=== PATIENT | male | born 1955 | race Caucasian/White ===

== ENCOUNTER 2019-12-27 10:55 | Outpatient (REF) | payer BC, SELFPAY ==
[2019-12-27 12:42] LABS: Hematocrit 44.8 % (42-52); Hemoglobin 15.1 g/dl (14.0-18.0); Mean Corpuscular HGB Conc 33.7 g/dl (31.0-36.0); Mean Corpuscular Volume 88.9 fL (80-98); Mean Platelet Volume 11.3 fL (9.4-12.4); Platelet Count 190 X10*3/uL (160-400); Red Blood Count 5.04 X10*6/uL (4.60-5.80); Red Cell Distribution Width 12.1 % (11.0-16.0); White Blood Count 8.1 X10*3/uL (4.8-10.8)
[2019-12-27 13:16] LABS: Thyroid Stimulating Hormone 2.58 uIU/mL (0.32-4.0)
[2019-12-27 13:17] LABS: Alanine Aminotransferase 25 U/L (0-40); Albumin Level 4.3 g/dL (3.5-5.0); Alkaline Phosphatase 89 U/L (39-117); Anion Gap 12 (12-20); Aspartate Amino Transferase 25 U/L (5-37); Bilirubin Direct 0.4 mg/dL (0.0-0.5); Bilirubin Total 0.9 mg/dL (0.0-1.0); Blood Urea Nitrogen 16 mg/dL (9-16); Carbon Dioxide 28 mmol/L (22-29); Chloride 104 mmol/L (96-108); Cholesterol 149 mg/dL; Estimated Glomerular Filt Rate > 60; Glucose Fasting 86 mg/dL (60-99); HDL Cholesterol 44 mg/dL; LDL Cholesterol Calculated 91 mg/dl; Magnesium 2.3 mg/dL (1.6-2.6); Potassium 4.4 mmol/l (3.3-5.1); Sodium 140 mmol/L (135-145); Total Protein 7.1 g/dL (6.5-8.0); Triglycerides 72 mg/dL
== END 2019-12-27 10:56 | disposition home or self-care (01) ==
LOC: HO.LAB 10:55
PROVIDERS: Absent Provider Internal Medicine; PCP Internal Medicine; Visit Provider Internal Medicine Cardiovascular Disease
DX: I25.10 Atherosclerotic heart disease of native coronary artery without angina pectoris (principal); I10 Essential (primary) hypertension; E78.2 Mixed hyperlipidemia
CPT/HCPCS: 36415; 80051; 80061; 80076; 82565; 82947; 83735; 84443; 84520; 85027

== ENCOUNTER 2020-04-16 15:07 | Outpatient (REF) | payer BC, SELFPAY | END 2020-04-16 15:08 | disposition home or self-care (01) | LOC: HO.LAB 15:07 | PROVIDERS: PCP Internal Medicine; Visit Provider Internal Medicine | DX: N40.0 Benign prostatic hyperplasia without lower urinary tract symptoms (principal); Z12.5 Encounter for screening for malignant neoplasm of prostate | CPT/HCPCS: 36415; 84153 ==

== ENCOUNTER 2020-12-20 10:20 | Outpatient (REF) | payer BC, SELFPAY ==
[2020-12-20 10:38] LABS: MANUAL DIFF FLAG NO
[2020-12-20 10:45] LABS: Basophils Percent Auto 0.5 % (0-2); Eosinophils Absolute Auto 0.1 X10*3/uL (0.0-0.4); Eosinophils Percent Auto 0.8 % (0-4); Hematocrit 43.7 % (42.0-52.0); Hemoglobin 15.2 g/dl (14.0-18.0); Imm Gran Abs Auto 0.01 X10*3/uL (0.00-0.03); Imm Gran Pct Auto 0.2 % (0.0-0.4); Lymphocytes Absolute Auto 1.3 X10*3/uL (1.2-4.9); Lymphocytes Percent Auto 20.5 % (20-40); Mean Corpuscular HGB Conc 34.8 g/dl (31.0-36.0); Mean Corpuscular Volume 89.2 fL (80.0-98.0); Mean Platelet Volume 11.4 fL (9.4-12.4); Monocytes Absolute Auto 0.7 X10*3/uL (0.1-1.2); Monocytes Percent Auto 10.7 % (2-11); Neutrophils Absolute Auto 4.15 x10*3/uL (2.0-8.3); Neutrophils Percent Auto 67.3 % (45-73); Platelet Count 173 X10*3/uL (160-400); White Blood Count 6.2 X10*3/uL (4.8-10.8)
[2020-12-20 11:00] LABS: Estimated Average Glucose 103 mg/dL; Hemoglobin A1c % 5.2 %
[2020-12-20 11:21] LABS: Alanine Aminotransferase 20 U/L (0-40); Albumin Level 4.4 g/dL (3.5-5.0); Alkaline Phosphatase 79 U/L (39-117); Anion Gap 9 (12-20); Aspartate Amino Transferase 21 U/L (5-37); Blood Urea Nitrogen 16 mg/dL (9-16); Calcium 9.2 mg/dL (8.4-10.2); Carbon Dioxide 31 mmol/L (22-29); Chloride 107 mmol/L (96-108); Cholesterol 128 mg/dL; Estimated Glomerular Filt Rate > 60; Glucose Fasting 114 mg/dL (60-99); HDL Cholesterol 37 mg/dL; LDL Cholesterol Calculated 76 mg/dl; Potassium 4.7 mmol/L (3.3-5.1); Sodium 142 mmol/L (135-145); Total Protein 6.8 g/dL (6.5-8.0); Triglycerides 76 mg/dL
[2020-12-20 11:40] LABS: Vitamin D 25-OH Total 23.9 ng/mL (>30)
[2020-12-20 13:42] LABS: Appearance Urine CLEAR; Color Urine YELLOW; Glucose Urine UA NEG (NEG); Leukocyte Esterase Urine NEG (NEG); Nitrite Urine NEG (NEG); Urine Blood 1+ (NEG); Urine Ketones NEG (NEG); Urine Protein TRACE MG/DL (NEG-TRACE)
[2020-12-20 13:43] LABS: Amorphous Sediment Urine 2+ /LPF; Mucus Urine 2+ /LPF; WBC Urine 0 /HPF (0-4)
== END 2020-12-20 10:21 | disposition home or self-care (01) ==
LOC: HO.LAB 10:20
PROVIDERS: PCP Internal Medicine; Visit Provider Internal Medicine
DX: Z00.00 Encounter for general adult medical examination without abnormal findings (principal)
CPT/HCPCS: 36415; 80053; 80061; 81001; 81003; 82306; 83036; 85025

== ENCOUNTER 2021-09-03 11:18 | Outpatient (REF) | payer MEDICARE, SELFPAY ==
[2021-09-03 13:41] LABS: MANUAL DIFF FLAG NO
[2021-09-03 13:45] LABS: Basophils Percent Auto 0.3 % (0-2); Eosinophils Absolute Auto 0.1 X10*3/uL (0.0-0.4); Eosinophils Percent Auto 0.6 % (0-4); Hematocrit 45.9 % (42.0-52.0); Hemoglobin 15.5 g/dl (14.0-18.0); Imm Gran Abs Auto 0.03 X10*3/uL (0.00-0.03); Imm Gran Pct Auto 0.4 % (0.0-0.4); Lymphocytes Absolute Auto 1.2 X10*3/uL (1.2-4.9); Lymphocytes Percent Auto 15.5 % (20-40); Mean Corpuscular HGB Conc 33.8 g/dl (31.0-36.0); Mean Corpuscular Hemoglobin 29.8 pg (27.0-33.0); Mean Corpuscular Volume 88.3 fL (80.0-98.0); Mean Platelet Volume 11.7 fL (9.4-12.4); Monocytes Absolute Auto 0.6 X10*3/uL (0.1-1.2); Monocytes Percent Auto 7.8 % (2-11); Neutrophils Percent Auto 75.4 % (45-73); Platelet Count 200 X10*3/uL (160-400); Red Cell Distribution Width 12.5 % (11.0-16.0)
[2021-09-03 13:55] LABS: Alanine Aminotransferase 23 U/L (0-40); Albumin Level 4.4 g/dL (3.5-5.0); Alkaline Phosphatase 81 U/L (39-117); Anion Gap 11 (12-20); Aspartate Amino Transferase 19 U/L (5-37); Bilirubin Total 0.8 mg/dL (0.0-1.0); Blood Urea Nitrogen 15 mg/dL (9-16); Carbon Dioxide 30 mmol/L (22-29); Chloride 105 mmol/L (96-108); Estimated Glomerular Filt Rate > 60; Glucose Random 120 mg/dL (60-115); Potassium 4.7 mmol/L (3.3-5.1); Sodium 141 mmol/L (135-145)
[2021-09-03 14:00] LABS: Estimated Average Glucose 105 mg/dL; Hemoglobin A1c % 5.3 %
[2021-09-03 14:18] LABS: Vitamin D 25-OH Total 22.2 ng/mL (>30)
== END 2021-09-03 11:19 | disposition home or self-care (01) ==
LOC: HO.10HDL 11:18
PROVIDERS: Visit Provider Internal Medicine
DX: I42.9 Cardiomyopathy, unspecified (principal); I10 Essential (primary) hypertension; R73.03 Prediabetes; E55.9 Vitamin D deficiency, unspecified
CPT/HCPCS: 36415; 80053; 82306; 83036; 85025

== ENCOUNTER 2021-12-12 10:00 | Outpatient (REF) | payer MEDICARE, SELFPAY ==
[2021-12-12 11:08] LABS: Estimated Average Glucose 100 mg/dL; Hemoglobin A1c % 5.1 %
[2021-12-12 11:48] LABS: Alanine Aminotransferase 22 U/L (0-40); Albumin Level 4.3 g/dL (3.5-5.0); Alkaline Phosphatase 80 U/L (39-117); Anion Gap 11 (12-20); Aspartate Amino Transferase 24 U/L (5-37); Bilirubin Total 0.7 mg/dL (0.0-1.0); Blood Urea Nitrogen 17 mg/dL (9-16); Calcium 9.1 mg/dL (8.4-10.2); Carbon Dioxide 29 mmol/L (22-29); Chloride 104 mmol/L (96-108); Estimated Glomerular Filt Rate > 60; Glucose Random 101 mg/dL (60-115); Potassium 4.3 mmol/L (3.3-5.1); Sodium 140 mmol/L (135-145); Total Protein 6.8 g/dL (6.5-8.0)
[2021-12-12 11:49] LABS: Vitamin D 25-OH Total 26.1 ng/mL (>30)
== END 2021-12-12 10:01 | disposition home or self-care (01) ==
LOC: HO.10HDL 10:00
PROVIDERS: Absent Provider Internal Medicine Cardiovascular Disease; Visit Provider Internal Medicine
DX: Z12.5 Encounter for screening for malignant neoplasm of prostate (principal); R73.03 Prediabetes; I25.10 Atherosclerotic heart disease of native coronary artery without angina pectoris; I10 Essential (primary) hypertension; E55.9 Vitamin D deficiency, unspecified
CPT/HCPCS: 36415; 80053; 82306; 83036; 84153

== ENCOUNTER 2022-04-01 16:01 | Outpatient (REF) | payer MEDICARE, SELFPAY ==
--- NOTE | ~2022-04-01 | XR_ITS ---
EXAMINATION: XR CHEST CLINICAL INFORMATION: Cough and shortness of breath. COMPARISON: 05/04/2018. TECHNIQUE: 2 views of the chest were obtained. FINDINGS: Median sternotomy with CABG. The cardiomediastinal silhouette is stable. The lungs are well expanded. No vascular congestion. No consolidation. No effusion or pneumothorax. Degenerative changes in the spine. XR/XR chest 2V IMPRESSION: No focal pneumonia.
== END 2022-04-01 16:02 | disposition home or self-care (01) ==
LOC: HO.XRAY 16:01
PROVIDERS: PCP Internal Medicine; Visit Provider Internal Medicine
DX: R06.02 Shortness of breath (principal); R05.9 Cough, unspecified
CPT/HCPCS: 71046

== ENCOUNTER 2022-04-17 17:02 | Outpatient (REF) | payer MEDICARE, SELFPAY ==
--- NOTE | ~2022-04-17 | XR_ITS ---
EXAMINATION: XR HAND, RIGHT CLINICAL INFORMATION: Right hand injury. COMPARISON: None TECHNIQUE: PA, lateral, and oblique views of the right hand. FINDINGS: There is loss of PIP and DIP joint space with periarticular spurring. No visible acute fracture, dislocation or subluxation is seen. The soft tissues are normal. XR/XR hand RT min 3V IMPRESSION: Degenerative arthritic changes PIP and DIP joints. No visible acute fracture or dislocation seen.
== END 2022-04-17 17:03 | disposition home or self-care (01) ==
LOC: HO.XRAY 17:02
PROVIDERS: PCP Internal Medicine; Visit Provider Internal Medicine
DX: S69.91XA Unspecified injury of right wrist, hand and finger(s), initial encounter (principal); X58.XXXA Exposure to other specified factors, initial encounter; Y93.9 Activity, unspecified; Y92.9 Unspecified place or not applicable; Y99.9 Unspecified external cause status
CPT/HCPCS: 73130

== ENCOUNTER 2022-04-24 15:43 | Outpatient (REF) | payer MEDICARE, SELFPAY ==
[2022-04-24 15:58] LABS: MANUAL DIFF FLAG NO
[2022-04-24 16:01] LABS: Basophils Percent Auto 0.2 % (0-2); Eosinophils Absolute Auto 0.1 X10*3/uL (0.0-0.4); Eosinophils Percent Auto 1.1 % (0-4); Hematocrit 48.3 % (42.0-52.0); Hemoglobin 16.5 g/dl (14.0-18.0); Imm Gran Abs Auto 0.01 X10*3/uL (0.00-0.03); Imm Gran Pct Auto 0.1 % (0.0-0.4); Lymphocytes Absolute Auto 1.6 X10*3/uL (1.2-4.9); Lymphocytes Percent Auto 18.4 % (20-40); Mean Corpuscular HGB Conc 34.2 g/dl (31.0-36.0); Mean Corpuscular Hemoglobin 29.4 pg (27.0-33.0); Mean Corpuscular Volume 85.9 fL (80.0-98.0); Mean Platelet Volume 10.6 fL (9.4-12.4); Monocytes Absolute Auto 0.7 X10*3/uL (0.1-1.2); Monocytes Percent Auto 8.2 % (2-11); Neutrophils Absolute Auto 6.2 x10*3/uL (2.0-8.3); Platelet Count 207 X10*3/uL (160-400); Red Blood Count 5.62 X10*6/uL (4.60-5.80); White Blood Count 8.6 X10*3/uL (4.8-10.8)
[2022-04-24 16:14] LABS: Estimated Average Glucose 108 mg/dL; Hemoglobin A1c % 5.4 %
[2022-04-24 16:25] LABS: Troponin-I High Sensitivity 3.4 ng/L (<3.5-35.0)
[2022-04-24 16:43] LABS: Alanine Aminotransferase 27 U/L (0-40); Albumin Level 4.3 g/dL (3.5-5.0); Alkaline Phosphatase 82 U/L (39-117); Anion Gap 12 (12-20); Aspartate Amino Transferase 21 U/L (5-37); Bilirubin Total 0.9 mg/dL (0.0-1.0); Blood Urea Nitrogen 16 mg/dL (9-16); Calcium 9.6 mg/dL (8.4-10.2); Carbon Dioxide 27 mmol/L (22-29); Chloride 107 mmol/L (96-108); Estimated Glomerular Filt Rate > 60; Glucose Random 96 mg/dL (60-115); Potassium 4.2 mmol/L (3.3-5.1); Sodium 142 mmol/L (135-145); Total Protein 6.9 g/dL (6.5-8.0)
[2022-04-24 16:48] LABS: Free T4 (Free Thyroxine) 0.98 ng/dL (0.71-1.85)
== END 2022-04-24 15:44 | disposition home or self-care (01) ==
LOC: HO.LAB 15:43
PROVIDERS: PCP Internal Medicine; Visit Provider Internal Medicine
DX: R42 Dizziness and giddiness (principal); I12.9 Hypertensive chronic kidney disease with stage 1 through stage 4 chronic kidney disease, or unspecified chronic kidney disease; D63.1 Anemia in chronic kidney disease; N18.9 Chronic kidney disease, unspecified
CPT/HCPCS: 36415; 80053; 82550; 83036; 84439; 84484; 85025

== ENCOUNTER 2022-06-13 10:20 | Outpatient (REF) | payer MEDICARE, SELFPAY ==
[2022-06-13 11:30] LABS: Cholesterol 120 mg/dL; HDL Cholesterol 40 mg/dL; LDL Cholesterol Calculated 68 mg/dl; Triglycerides 61 mg/dL
== END 2022-06-13 10:21 | disposition home or self-care (01) ==
LOC: HO.LAB 10:20
PROVIDERS: PCP Internal Medicine; Visit Provider Nurse Practitioner Family
DX: I25.10 Atherosclerotic heart disease of native coronary artery without angina pectoris (principal)
CPT/HCPCS: 36415; 80061

== ENCOUNTER 2022-08-14 15:32 | Outpatient (REF) | payer MEDICARE, SELFPAY ==
[2022-08-14 15:54] LABS: MANUAL DIFF FLAG NO
[2022-08-14 16:07] LABS: Basophils Percent Auto 0.4 % (0-2); Eosinophils Absolute Auto 0.1 X10*3/uL (0.0-0.4); Eosinophils Percent Auto 1.5 % (0-4); Hematocrit 46.8 % (42.0-52.0); Hemoglobin 16.1 g/dl (14.0-18.0); Imm Gran Abs Auto 0.02 X10*3/uL (0.00-0.03); Imm Gran Pct Auto 0.3 % (0.0-0.4); Lymphocytes Absolute Auto 1.3 X10*3/uL (1.2-4.9); Lymphocytes Percent Auto 15.9 % (20-40); Mean Corpuscular HGB Conc 34.4 g/dl (31.0-36.0); Mean Corpuscular Volume 87.3 fL (80.0-98.0); Monocytes Absolute Auto 0.6 X10*3/uL (0.1-1.2); Monocytes Percent Auto 7.9 % (2-11); Neutrophils Absolute Auto 5.9 x10*3/uL (2.0-8.3); Platelet Count 178 X10*3/uL (160-400); Red Blood Count 5.36 X10*6/uL (4.60-5.80); Red Cell Distribution Width 12.3 % (11.0-16.0); White Blood Count 7.9 X10*3/uL (4.8-10.8)
[2022-08-14 16:34] LABS: Alanine Aminotransferase 18 U/L (0-40); Albumin Level 4.1 g/dL (3.5-5.0); Alkaline Phosphatase 75 U/L (39-117); Anion Gap 12 (12-20); Aspartate Amino Transferase 18 U/L (5-37); Blood Urea Nitrogen 19 mg/dL (9-16); Calcium 9.7 mg/dL (8.4-10.2); Carbon Dioxide 27 mmol/L (22-29); Chloride 107 mmol/L (96-108); Estimated Glomerular Filt Rate > 60; Glucose Random 98 mg/dL (60-115); Potassium 4.2 mmol/L (3.3-5.1); Sodium 142 mmol/L (135-145); Total Protein 6.8 g/dL (6.5-8.0)
== END 2022-08-14 15:33 | disposition home or self-care (01) ==
LOC: HO.LAB 15:32
PROVIDERS: PCP Internal Medicine; Visit Provider Internal Medicine
DX: I10 Essential (primary) hypertension (principal); E78.00 Pure hypercholesterolemia, unspecified; I25.10 Atherosclerotic heart disease of native coronary artery without angina pectoris
CPT/HCPCS: 36415; 80053; 85025

== ENCOUNTER 2023-02-04 08:13 | Outpatient (REF) | payer MEDICARE, SELFPAY ==
[2023-02-04 08:30] LABS: MANUAL DIFF FLAG NO
[2023-02-04 09:10] LABS: Basophils Percent Auto 0.4 % (0-2); Eosinophils Absolute Auto 0.1 X10*3/uL (0.0-0.4); Eosinophils Percent Auto 1.8 % (0-4); Hematocrit 49.8 % (42.0-52.0); Hemoglobin 16.7 g/dl (14.0-18.0); Imm Gran Abs Auto 0.02 X10*3/uL (0.00-0.03); Imm Gran Pct Auto 0.3 % (0.0-0.4); Lymphocytes Absolute Auto 1.5 X10*3/uL (1.2-4.9); Lymphocytes Percent Auto 18.6 % (20-40); Mean Corpuscular HGB Conc 33.5 g/dl (31.0-36.0); Mean Corpuscular Hemoglobin 30.2 pg (27.0-33.0); Mean Corpuscular Volume 90.1 fL (80.0-98.0); Mean Platelet Volume 10.9 fL (9.4-12.4); Monocytes Absolute Auto 0.6 X10*3/uL (0.1-1.2); Monocytes Percent Auto 7.8 % (2-11); Neutrophils Absolute Auto 5.6 x10*3/uL (2.0-8.3); Neutrophils Percent Auto 71.1 % (45-73); Platelet Count 190 X10*3/uL (160-400); Red Blood Count 5.53 X10*6/uL (4.60-5.80); Red Cell Distribution Width 12.1 % (11.0-16.0); White Blood Count 7.9 X10*3/uL (4.8-10.8)
[2023-02-04 09:47] LABS: Alanine Aminotransferase 25 U/L (0-40); Albumin Level 4.4 g/dL (3.5-5.0); Alkaline Phosphatase 84 U/L (39-117); Anion Gap 12 (12-20); Aspartate Amino Transferase 23 U/L (5-37); Bilirubin Total 1.1 mg/dL (0.0-1.0); Blood Urea Nitrogen 18 mg/dL (9-16); Calcium 9.4 mg/dL (8.4-10.2); Carbon Dioxide 30 mmol/L (22-29); Chloride 108 mmol/L (96-108); Cholesterol 132 mg/dL (<200); Estimated Glomerular Filt Rate > 60; Glucose Fasting 107 mg/dL (60-99); HDL Cholesterol 43 mg/dL (>40); LDL Cholesterol Calculated 73 mg/dL (<100); Potassium 4.1 mmol/L (3.3-5.1); Sodium 146 mmol/L (135-145); Total Protein 7.5 g/dL (6.5-8.0); Triglycerides 83 mg/dL (<150)
[2023-02-04 09:58] LABS: Prostate Specific Antigen Scr 3.17 ng/mL (<0.05-4.0)
[2023-02-04 10:08] LABS: Vitamin D 25-OH Total 30.4 ng/mL (>30)
== END 2023-02-04 08:14 | disposition home or self-care (01) ==
LOC: HO.LAB 08:13
PROVIDERS: Absent Provider Internal Medicine; PCP Internal Medicine; Visit Provider Nurse Practitioner Family
DX: Z12.5 Encounter for screening for malignant neoplasm of prostate (principal); I25.10 Atherosclerotic heart disease of native coronary artery without angina pectoris; I10 Essential (primary) hypertension; I48.0 Paroxysmal atrial fibrillation
CPT/HCPCS: 36415; 80053; 80061; 82306; 84153; 85025

== ENCOUNTER 2023-03-02 10:04 | Outpatient (REF) | payer MEDICARE, SELFPAY ==
[2023-03-02 10:50] LABS: Anion Gap 10 (12-20); Blood Urea Nitrogen 13 mg/dL (9-16); Calcium 9.3 mg/dL (8.4-10.2); Carbon Dioxide 30 mmol/L (22-29); Chloride 105 mmol/L (96-108); Estimated Glomerular Filt Rate > 60; Glucose Random 111 mg/dL (60-115); Potassium 3.8 mmol/L (3.3-5.1); Sodium 141 mmol/L (135-145)
[2023-03-02 10:52] LABS: Estimated Average Glucose 100 mg/dL; Hemoglobin A1c % 5.1 % (<6.0)
== END 2023-03-02 10:05 | disposition home or self-care (01) ==
LOC: HO.10HDL 10:04
PROVIDERS: Visit Provider Internal Medicine
DX: R73.03 Prediabetes (principal); I42.9 Cardiomyopathy, unspecified
CPT/HCPCS: 36415; 80048; 83036

== ENCOUNTER 2023-12-31 10:30 | Outpatient (REF) | payer MEDICARE, SELFPAY ==
[2023-12-31 13:35] LABS: MANUAL DIFF FLAG NO
[2023-12-31 13:40] LABS: Basophils Percent Auto 0.5 % (0-2); Eosinophils Absolute Auto 0.1 X10*3/uL (0.0-0.4); Eosinophils Percent Auto 1.3 % (0-4); Hematocrit 50.3 % (42.0-52.0); Hemoglobin 17.2 g/dl (14.0-18.0); Imm Gran Abs Auto 0.02 X10*3/uL (0.00-0.03); Imm Gran Pct Auto 0.2 % (0.0-0.4); Lymphocytes Absolute Auto 1.4 X10*3/uL (1.2-4.9); Lymphocytes Percent Auto 16.4 % (20-40); Mean Corpuscular HGB Conc 34.2 g/dl (31.0-36.0); Mean Corpuscular Hemoglobin 30.1 pg (27.0-33.0); Mean Corpuscular Volume 88.1 fL (80.0-98.0); Mean Platelet Volume 10.8 fL (9.4-12.4); Monocytes Absolute Auto 0.7 X10*3/uL (0.1-1.2); Monocytes Percent Auto 7.9 % (2-11); Neutrophils Absolute Auto 6.3 x10*3/uL (2.0-8.3); Neutrophils Percent Auto 73.7 % (45-73); Platelet Count 201 X10*3/uL (160-400); Red Blood Count 5.71 X10*6/uL (4.60-5.80); Red Cell Distribution Width 12.2 % (11.0-16.0); White Blood Count 8.5 X10*3/uL (4.8-10.8)
[2023-12-31 14:22] LABS: Estimated Average Glucose 105 mg/dL; Hemoglobin A1C 133.2689 umol/L; Hemoglobin A1c % 5.3 % (<6.0); Total Hemoglobin (HGBA1C) 3903.9201 umol/L
[2023-12-31 15:49] LABS: Alanine Aminotransferase 29 U/L (0-40); Albumin Level 4.5 g/dL (3.5-5.0); Alkaline Phosphatase 88 U/L (39-117); Anion Gap 10 (12-20); Aspartate Amino Transferase 29 U/L (5-37); Bilirubin Total 0.9 mg/dL (0.0-1.0); Blood Urea Nitrogen 16 mg/dL (9-16); Calcium 9.5 mg/dL (8.4-10.2); Carbon Dioxide 32 mmol/L (22-29); Chloride 101 mmol/L (96-108); Estimated Glomerular Filt Rate > 60; Glucose Random 101 mg/dL (60-115); Potassium 4.1 mmol/L (3.3-5.1); Sodium 139 mmol/L (135-145); Total Protein 7.5 g/dL (6.5-8.0)
[2023-12-31 16:10] LABS: Creatinine Urine 94.48 mg/dL; Microalbum/Creatinine Ratio Ur 46.5 ug/mg cr (<30)
[2023-12-31 16:16] LABS: Vitamin D 25-OH Total 30.4 ng/mL (>30)
== END 2023-12-31 10:31 | disposition home or self-care (01) ==
LOC: HO.10HDL 10:30
PROVIDERS: Visit Provider Internal Medicine
DX: I25.10 Atherosclerotic heart disease of native coronary artery without angina pectoris (principal); E11.9 Type 2 diabetes mellitus without complications; I10 Essential (primary) hypertension; E55.9 Vitamin D deficiency, unspecified
CPT/HCPCS: 36415; 80053; 82043; 82306; 82570; 83036; 85025

== ENCOUNTER 2024-07-28 13:09 | Outpatient (REF) | payer MEDICARE, SELFPAY ==
[2024-07-28 13:57] LABS: MANUAL DIFF FLAG NO
[2024-07-28 14:33] LABS: Basophils Percent Auto 0.3 % (0-2); Eosinophils Absolute Auto 0.1 X10*3/uL (0.0-0.4); Eosinophils Percent Auto 0.5 % (0-4); Hematocrit 47.9 % (42.0-52.0); Hemoglobin 16.6 g/dl (14.0-18.0); Imm Gran Abs Auto 0.04 X10*3/uL (0.00-0.03); Imm Gran Pct Auto 0.4 % (0.0-0.4); Lymphocytes Absolute Auto 2.1 X10*3/uL (1.2-4.9); Lymphocytes Percent Auto 21.8 % (20-40); Mean Corpuscular HGB Conc 34.7 g/dl (31.0-36.0); Mean Corpuscular Hemoglobin 30.1 pg (27.0-33.0); Mean Corpuscular Volume 86.9 fL (80.0-98.0); Mean Platelet Volume 10.5 fL (9.4-12.4); Monocytes Absolute Auto 0.5 X10*3/uL (0.1-1.2); Neutrophils Absolute Auto 6.8 x10*3/uL (2.0-8.3); Platelet Count 249 X10*3/uL (160-400); Red Blood Count 5.51 X10*6/uL (4.60-5.80); Red Cell Distribution Width 12.5 % (11.0-16.0); White Blood Count 9.4 X10*3/uL (4.8-10.8)
[2024-07-28 14:36] LABS: Estimated Average Glucose 111 mg/dL; Hemoglobin A1c % 5.5 % (<6.0); Total Hemoglobin (HGBA1C) 4273.8627 umol/L
[2024-07-28 14:56] LABS: Alanine Aminotransferase 30 U/L (0-40); Albumin Level 4.7 g/dL (3.5-5.0); Alkaline Phosphatase 81 U/L (39-117); Anion Gap 13 (12-20); Aspartate Amino Transferase 30 U/L (5-37); Bilirubin Total 0.9 mg/dL (0.0-1.0); Blood Urea Nitrogen 18 mg/dL (9-16); Calcium 9.6 mg/dL (8.4-10.2); Carbon Dioxide 28 mmol/L (22-29); Chloride 106 mmol/L (96-108); Estimated Glomerular Filt Rate > 60; Glucose Random 112 mg/dL (60-115); Potassium 3.7 mmol/L (3.3-5.1); Sodium 143 mmol/L (135-145); Total Protein 7.1 g/dL (6.5-8.0)
[2024-07-28 15:16] LABS: Prostate Specific Antigen 7.49 ng/mL (<0.05-4.0)
[2024-07-29 07:48] LABS: LDL Cholesterol Direct 79 mg/dL (<100)
== END 2024-07-28 13:10 | disposition home or self-care (01) ==
LOC: HO.LAB 13:09
PROVIDERS: PCP Internal Medicine; Visit Provider Internal Medicine
DX: I10 Essential (primary) hypertension (principal); E78.5 Hyperlipidemia, unspecified; E11.59 Type 2 diabetes mellitus with other circulatory complications; R79.89 Other specified abnormal findings of blood chemistry; I25.10 Atherosclerotic heart disease of native coronary artery without angina pectoris; Z95.1 Presence of aortocoronary bypass graft; Z12.5 Encounter for screening for malignant neoplasm of prostate; Z79.82 Long term (current) use of aspirin; Z79.84 Long term (current) use of oral hypoglycemic drugs; Z79.899 Other long term (current) drug therapy
CPT/HCPCS: 36415; 80053; 83036; 83721; 84153; 85025; 96127; 99202

== ENCOUNTER 2024-07-28 13:09 | Outpatient (AMB) | payer MEDICARE, SELFPAY ==
--- NOTE | 2024-07-28 13:13 | MHC.PC.OV ---
Vital Signs 07/28/24 13:19 Height 5 ft 9 in Weight 226 lb BMI 33.4 BP 120/80 Blood Pressure Location Lt brachial Position Sitting Pulse 71 Pulse Source Pulse Oximeter Temp 97.2 F Temp Source Axillary Pulse Oximetry (%) 98 Oxygen Delivery Method Room Air Intake Visit Reasons: Routine Churn Operator Required: No Accompanied by: Self / Same As Patient Allergies No Known Allergies Allergy (Mild, Verified 07/28/24 13:21) NOT APPLICABLE Medication List - Last Reconciled 07/28/24 by Yusra Bell MD aspirin 81 mg PO DAILY atorvastatin 80 mg PO DAILY carvedilol 25 mg PO BID cholecalciferol (vitamin D3) 25 mcg PO DAILY empagliflozin (Jardiance) 10 mg PO DAILY metoprolol succinate ER 100 mg PO DAILY nitroglycerin 0.4 mg sublingual Q5M PRN ranolazine ER 500 mg PO BID sacubitril-valsartan 97-103 mg (Entresto) 1 tab PO BID Tobacco use date assessed: 07/28/24 Fall risk assessment: 1 Fall in past year Dental Screening Dental Screen Date: 07/28/24 Did you have a dental visit in the last 12 months?: Yes Did you have a dental problem in the last 6 months where you did not have access to dental care?: No HPI HPI Comments History of Present Illness Details The patient is a 69 year old male with a past medical history of diabetes, CAD s/p CABG 20 years ago, hyperlipidemia, hypertension, OA s/p b/l hip replacements presenting for follow up CV: On entresto, coreg, toprol, zetia, ranolozine, NTG, ASA. BP 120/80. Follows with Dr Coleman. Irregular heart beat. DM: On jardiance 10mg daily. Last A1C 5.3%. Patient has 2.5 week history of sinus congestion. Has been using claritin, flonase. Colonoscopy 2018-Dr Nancy KWON CONSTITUTIONAL: Denies weight loss, fever and chills. HEENT: Denies changes in vision and hearing. RESPIRATORY: Denies SOB and cough. CV: Denies palpitations and CP GI: Denies abdominal pain, nausea, vomiting and diarrhea. : Denies dysuria and urinary frequency. MSK: Denies new myalgia and joint pain. SKIN: Denies rash and pruritus. NEUROLOGICAL: Denies headache PSYCHIATRIC: Denies recent changes in mood. PHYSICAL EXAM: GENERAL: Alert and oriented x 3. NAD EYES: EOMI. Anicteric. HENT: Moist mucous membranes. No scleral icterus. No cervical lymphadenopathy. LUNGS: Clear to auscultation bilaterally. CARDIOVASCULAR: Regular rate and rhythm. No murmur. No JVD. ABDOMEN: Soft, non-tender +bs EXTREMITIES: No edema. Non-tender. SKIN: No rashes or lesions. Warm. NEUROLOGIC: No focal neurological deficits. CN II-XII grossly intact PSYCHIATRIC: Cooperative. Appropriate mood and affect [facility] Surgical History History of colonoscopy (~06/11/17) Family History Mother No problems noted. Father No problems noted. Social History Housing: House Patient Tobacco Use Status: Former Tobacco user e-Cigarette/Vaping Use: Former Use Current occupational status: retired Cognitive needs: No Hearing needs: No Vision needs: Yes (rx glasses) Questionnaire PHQ-9 Over the last 2 weeks, how often have you been bothered by any of the following problems? 1. Little interest or pleasure in doing things: not at all 2. Feeling down, depressed, or hopeless: not at all 3. Trouble falling or staying asleep, or sleeping too much: not at all 4. Feeling tired or having little energy: not at all 5. Poor appetite or overeating: not at all 6. Feeling bad about yourself - or that you are a failure or have let yourself or your family down: not at all 7. Trouble concentrating on things, such as reading the newspaper or watching television: not at all 8. Moving or speaking so slowly that other people could have noticed. Or the opposite - being so fidgety or restless that you have been moving around a lot more than usual: not at all 9. Thoughts that you would be better off or of hurting yourself in some way: not at all Total score: 0 Depression Screening Interpretation: Negative Depression Screening Done: Yes 18233 - PHQ-9 Billing: Yes Source: Developed by Drs. Elmo Marroquin, Darshana Austin, Mumtaz Ca and colleagues, with an educational saurav from [employer]. Thrive Questionnaire Date Thrive assessed: 07/28/24 I am a: Patient Within the past 12 months, did the food you bought not last and you didn't have the money to get more?: Never true Within the past 12 months, did you worry whether your food would run out before you got money to buy more?: Never true Do you have trouble paying for medicines?: No Do you have trouble getting transportation to medical appointments?: No Do you have trouble paying your heating and electricity bill?: No Do you have trouble taking care of your child, family member or friend?: No Do you have trouble with day-to-day activities such as bathing, preparing meals, shopping, managing finances, etc.?: No Are you currently unemployed and looking for a job?: No Are you interested in more education?: No THRIVE Score: 0 AUDIT C Alcohol Use Questionnaire (AUDIT-C) 1. How often do you have a drink containing alcohol?: Monthly or less 2. How many drinks containing alcohol do you have on a typical day when you are drinking?: 1 or 2 3. How often do you have six or more drinks on one occasion?: Less than monthly Total Score: 2 GRACIELA-7 AMB Questionnaire GRACIELA-7 Date GRACIELA - 7 assessed: 07/28/24 Feeling nervous, anxious, or on edge: 0 = Not at all Not being able to stop or control worryin = Not at all Worrying too much about different things: 0 = Not at all Trouble relaxin = Not at all Being so restless that it is hard to sit still: 0 = Not at all Becoming easily annoyed or irritable: 0 = Not at all Feeling afraid as if something awful might happen: 0 = Not at all Total GRACIELA-7 score (0-4 normal; 5-9 mild; 10-14 moderate; 15-21 severe): 0 Source: Developed by Drs. Elmo Marroquin, Mumtaz Espinoza and colleagues, with an educational saurav from [employer]. Physical exam (Primary Care) Vital Signs: Last Vital Signs Temp 97.2 F 07/28/24 13:19 Pulse 71 07/28/24 13:19 BP 120/80 07/28/24 13:19 Pulse Ox 98 07/28/24 13:19 Oxygen Delivery Method Room Air 07/28/24 13:19 BMI result Body Mass Index 33.4 Tobacco/Smoking Status: Tobacco use Status Tobacco use date assessed 07/28/24 07/28/24 13:14 Patient Tobacco Use Status Former Tobacco user 07/28/24 13:26 e-Cigarette/Vaping Use Former Use 07/28/24 13:26 PHQ-9: PHQ-9 Score PHQ-9: Total score 0 07/28/24 13:20 Depression Screening Interpretation: Negative Thrive Assessment: Date of Thrive Assessment Date Thrive assessed 07/28/24 07/28/24 13:18 Coding Level of Care Code New Pt Level 4 (04064) Complex EM visit Add On G2211 Diagnoses Primary hypertension I10 Hypertension type: primary hypertension Hyperlipidemia, unspecified hyperlipidemia type E78.5 Hyperlipidemia type: unspecified Type 2 diabetes mellitus with other circulatory complication, 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.59 Diabetes mellitus type: type 2 Diabetes mellitus intermediate school teacher insulin use: without intermediate school teacher use Diabetes mellitus complication status: with circulatory complication Diabetes mellitus complication detail: with other circulatory complications History of coronary artery bypass graft Z95.1 Low vitamin D level R79.89 Additional Codes PHQ-9 - 90995 - PHQ-9 Billing: Yes ([id number]) Assessment & Plan Assessment & Plan (1) Hypertension: Code(s): I10 - Essential (primary) hypertension Category: Medical Qualifiers: Hypertension type: primary hypertension Qualified Code(s): I10 - Essential (primary) hypertension (2) Hyperlipidemia: Code(s): E78.5 - Hyperlipidemia, unspecified Category: Medical Qualifiers: Hyperlipidemia type: unspecified Qualified Code(s): E78.5 - Hyperlipidemia, unspecified (3) Diabetes: Code(s): E11.9 - Type 2 diabetes mellitus without complications Category: Medical Qualifiers: Diabetes mellitus type: type 2 Diabetes mellitus intermediate school teacher insulin use: without intermediate school teacher use Diabetes mellitus complication status: with circulatory complication Diabetes mellitus complication detail: with other circulatory complications Qualified Code(s): E11.59 - Type 2 diabetes mellitus with other circulatory complications (4) History of coronary artery bypass graft: Code(s): Z95.1 - Presence of aortocoronary bypass graft Category: Surgical (5) Low vitamin D level: Code(s): R79.89 - Other specified abnormal findings of blood chemistry Category: Medical Plan 69 year old presenting to [facility] past medical surgical social reviewed Labs ordered zpack sinus congestion increased cough. call if no persistent or worsening symptoms Labs ordered Orders: Orders Complete Blood Count Auto Diff 07/28/24 E11.9 - Type 2 diabetes mellitus without complications, E78.5 - Hyperlipidemia, unspecified, I10 - Essential (primary) hypertension, I25.10 - Atherosclerotic heart disease of [place] coronary artery without angina pectoris, R79.89 - Other specified abnormal findings of blood chemistry, Z95.1 - Presence of aortocoronary bypass graft Comprehensive Met. Panel 07/28/24 E11.9 - Type 2 diabetes mellitus without complications, E78.5 - Hyperlipidemia, unspecified, I10 - Essential (primary) hypertension, I25.10 - Atherosclerotic heart disease of [place] coronary artery without angina pectoris, R79.89 - Other specified abnormal findings of blood chemistry, Z95.1 - Presence of aortocoronary bypass graft LDL Cholesterol Direct 07/28/24 E11.9 - Type 2 diabetes mellitus without complications, E78.5 - Hyperlipidemia, unspecified, I10 - Essential (primary) hypertension, I25.10 - Atherosclerotic heart disease of [place] coronary artery without angina pectoris, R79.89 - Other specified abnormal findings of blood chemistry, Z95.1 - Presence of aortocoronary bypass graft Hemoglobin A1c 07/28/24 E11.9 - Type 2 diabetes mellitus without complications, E78.5 - Hyperlipidemia, unspecified, I10 - Essential (primary) hypertension, I25.10 - Atherosclerotic heart disease of [place] coronary artery without angina pectoris, R79.89 - Other specified abnormal findings of blood chemistry, Z95.1 - Presence of aortocoronary bypass graft Prostate Specific Antigen 07/28/24 E11.9 - Type 2 diabetes mellitus without complications, E78.5 - Hyperlipidemia, unspecified, I10 - Essential (primary) hypertension, I25.10 - Atherosclerotic heart disease of [place] coronary artery without angina pectoris, R79.89 - Other specified abnormal findings of blood chemistry, Z95.1 - Presence of aortocoronary bypass graft Medications: New albuterol sulfate 2.5 mg (3 mL) inhalation Q4H PRN 90 mL 3RF shortness of breath or wheezing azithromycin For 250 mg dose pack: take 500 mg today (day 1), then 250 mg for 4 days (days 2-5) PO 6 tabs 0RF
[2024-07-28 13:19] VITALS: BP 120/80; PULSE 71; TEMP 36.2; O2SAT 98; BMI 33.4
--- OUTSIDE RECORDS SUMMARY | 2024-07-28 15:20 | XMS_ITS | Clinical Summary ---
Author Organization [facility] Address [address] [place] [address] Care Team Providers Care Offset Lithographic Press Setter Name Role Phone Lyndon Olsen MD Primary Care Provider [phone] Allergies No known active allergies Medications Medication Sig Dispensed Refills Start Date End Date Status hydrochlorothiazide (MICROZIDE) 12.5 MG capsule Take 12.5 mg by mouth daily. AM 0 Active losartan (COZAAR) 50 MG tablet Take 100 mg by mouth daily. AM 0 Active amLODIPine (NORVASC) 10 MG tablet Take 10 mg by mouth daily. AM 0 Active Glucosamine HCl (GLUCOSAMINE PO) Take 1,500 mg by mouth. AM 0 Active carvedilol (COREG) 25 MG tablet Take by mouth 2 (two) times a day with meals. AM PM 0 Active atorvastatin (LIPITOR) 80 MG tablet Take 80 mg by mouth daily. PM 0 Active niacin (NIASPAN) 500 MG CR tablet Take 500 mg by mouth every night at bedtime. PM 0 Active acetaminophen (TYLENOL EXTRA STRENGTH) 500 MG tablet Take 2 tablets (1,000 mg total) by mouth every 6 (six) hours as needed for pain or fever. 30 tablet 0 03/07/2014 Active methocarbamol (ROBAXIN) 750 MG tablet Take 1 tablet (750 mg total) by mouth every 6 (six) hours as needed (Take as needed for spasm). 80 tablet 0 03/07/2014 Active oxyCODONE (ROXICODONE) 5 MG immediate release tablet Take 1-2 tablets (5-10 mg total) by mouth every 4 (four) hours as needed for pain. 100 tablet 0 03/07/2014 Active Social History Tobacco Use Types Packs/Day Years Used Date Smoking Tobacco: Former Cigarettes 2 15 Q uit: 02/18/2004 Smokeless Tobacco: Never Alcohol Use Standard Drinks/Week Comments Yes 12 (1 standard drink = 0.6 oz pu re alcohol) Sex and Gender Information Value Date Recorded Sex Assigned at Not on file Gender Identity Not on file Sexual Orientation Not on file Last Filed Vital Signs Vital Sign Reading Time Taken Comments Blood Pressure 112/64 03/08/2014 3:00 PM EST Pulse 62 03/08/2014 1:00 PM EST Temperature 36.4 ??C (97.6 ??F) 03/08/2014 1:00 PM ES T Respiratory Rate 16 03/08/2014 1:00 PM EST Oxygen Saturation 97% 03/08/2014 1:00 PM EST Inhaled Oxygen Concentration - - Weight 93 kg (205 lb) 03/07/2014 6:16 AM EST Height 175.3 cm (5' 9 ) 03/07/2014 6:16 AM EST Body Mass Index 30.27 03/07/2014 6:16 AM EST Plan of Treatment Not on file Medical Devices Implanted Type Area Shell Grader Device Identifier Shelf Expiration Date Model / Serial / Lot Shell Trident Psl Mdm F 56mm 57.8mm Cluster Rim Hu X3 - [id number] - [id number] Implanted:Qty: 1 on 03/07/2014 by Vivek Vargas MD at [facility] Right: Hip [employer] 01/15/2019 542-11-56F / / [id number] Screw Trident Secur-Fit 40mm 6.5mm Titanium Bone Cancellous - [id number] - [id number] Implanted:Qty: 1 on 03/07/2014 by Vivek Vargas MD at [facility] Right: Hip [facility] 02/15/[id number]- 1 / / [id number] Screw Trident Secur-Fit 40mm 6.5mm Titanium Bone Cancellous - [id number] - [id number] Implanted:Qty: 1 on 03/07/2014 by Vivek Vargas MD at [facility] Right: Hip [facility] 06/15/[id number]- 1 / / [id number] Head +2.5mm 32mm C Taper High Performance Offset Biolox - [id number] - [id number] Implanted:Qty: 1 on 03/07/2014 by Vivek Vargas MD at [facility] Right: Hip [employer] 07/16/2018 18-3225 / / [id number] Stem Secur-Fit Plus 9 150mm 35mm 13mm Primary Hu Femoral Hip - [id number] - [id number] Implanted:Qty: 1 on 03/07/2014 by Vivek Vargas MD at [facility] Right: Hip [employer] 01/15/2019 [id number] / / [id number] Insert Trident 0d F 32mm X3 Acetabular Hip - [id number] - [id number] Implanted:Qty: 1 on 03/07/2014 by Vivek Vargas MD at [facility] Right: Hip [facility] 05/16/2018 623-00-32F / / [id number] Advance Directives For more information, please contact: [phone] Latest Code Status on File Code Status Date Activated Date Inactivated Comments Full Code 03/07/2014 1:43 PM 03/08/2014 11:19 PM This code status was ascertained in the following way: per living will or healthcare instructions. Code Status History Code Status Date Activated Date Inactivated Comments Full Code 03/07/2014 5:35 AM 03/07/2014 1:43 PM Care Teams Offset Lithographic Press Setter Relationship Specialty Start Date End Date Lyndon Olsen MD [address] [place] [address] [place] [id number] PCP - General Smoking Tobacco Packer Hand 02/28/14
== END 2024-07-28 13:39 | disposition home or self-care (01) ==
LOC: HO.HMCHD 13:09
PROVIDERS: PCP Internal Medicine; Visit Provider Internal Medicine
DX: I10 Essential (primary) hypertension (principal); E78.5 Hyperlipidemia, unspecified; E11.59 Type 2 diabetes mellitus with other circulatory complications; Z95.1 Presence of aortocoronary bypass graft; R79.89 Other specified abnormal findings of blood chemistry

== ENCOUNTER 2024-08-12 13:08 | Outpatient (REF) | payer MEDICARE, SELFPAY ==
--- OUTSIDE RECORDS SUMMARY | 2024-08-12 13:42 | XMS_ITS | Clinical Summary ---
Author Organization [facility] Address [address] [place] [address] Care Team Providers Care Machine Ceramic Coater Name Role Phone Lyndon Olsen MD Primary Care Provider [phone] Allergies No known active allergies Medications Medication [...] 62 03/08/2014 1:00 PM EST Temperature 36.4 C (97.6 F) 03/08/2014 1:00 PM EST Respiratory Rate 16 03/08/2014 1:00 PM EST Oxygen Saturation 97% 03/08/2014 1:00 PM EST Inhaled Oxygen Concentration - - Weight 93 kg (205 lb) 03/07/2014 6:16 AM EST Height 175.3 cm (5' 9 ) 03/07/2014 6:16 AM EST Body Mass Index 30.27 03/07/2014 6:16 AM EST Plan of Treatment Not on file Medical Devices Implanted Type Area Audit Manager Device Identifier Shelf Expiration Date Model / Serial / Lot Shell Trident Psl Mdm F 56mm 57.8mm Cluster Rim Hu X3 - [id number] - [id number] Implanted:Qty: 1 on 03/07/2014 by Vivek Vargas MD at [facility] Right: Hip [facility] 01/15/2019 542-11-56F / / [id number] Screw Trident Secur-Fit 40mm 6.5mm Titanium Bone Cancellous - [id number] - [id number] Implanted:Qty: 1 on 03/07/2014 by Vivek Vargas MD at [facility] Right: Hip [facility] 02/15/[id number]- / / [id number] Screw Trident Secur-Fit 40mm 6.5mm Titanium Bone Cancellous - [id number] - [id number] Implanted:Qty: 1 on 03/07/2014 by Vivek Vargas MD at [facility] Right: Hip [facility] 06/15/[id number]- 1 / / [id number] Head +2.5mm 32mm C Taper High Performance Offset [employer] - [id number] - [id number] Implanted:Qty: 1 on 03/07/2014 by Vivek Vargas MD at [facility] Right: Hip [facility] 07/16/2018 18-3225 / / [id number] Stem Secur-Fit Plus 9 150mm 35mm 13mm Primary Hu Femoral Hip - [id number] - [id number] Implanted:Qty: 1 on 03/07/2014 by Vivek Vargas MD at [facility] Right: Hip [facility] 01/15/2019 [id number] / / [id number] Insert Trident 0d F 32mm X3 Acetabular Hip - [id number] - [id number] Implanted:Qty: 1 on 03/07/2014 by Vivek Vargas MD at [facility] Right: Hip [facility] 05/16/2018 623-00-32F / / [id number] Advance Directives For more information, please contact: [phone] Latest Code Status on File Code Status Date Activated Date Inactivated Comments Full Code 03/07/2014 1:43 PM 03/08/2014 11:19 PM This code status was ascertained in the following way: per living will or healthcare instructions. Code Status History Code Status Date Activated Date Inactivated Comments Full Code 03/07/2014 5:35 AM 03/07/2014 1:43 PM Care Teams Machine Ceramic Coater Relationship Specialty Start Date End Date Lyndon Olsen MD [address] [place] [address] [place] [id number] PCP - General Corporate Officer 02/28/14
== END 2024-08-12 13:09 | disposition home or self-care (01) ==
LOC: HO.LAB 13:08
PROVIDERS: PCP Internal Medicine; Visit Provider Internal Medicine
DX: R97.20 Elevated prostate specific antigen [PSA] (principal); Z12.5 Encounter for screening for malignant neoplasm of prostate
CPT/HCPCS: 36415; 84153

== ENCOUNTER 2024-08-25 10:05 | Outpatient (AMB) | payer MEDICARE, SELFPAY ==
--- OUTSIDE RECORDS SUMMARY | 2024-08-25 10:44 | XMS_ITS | Patient Health Record ---
Author Organization [facility] Address [address] [place] [id number] Care Team Providers Care Enterprise Infrastructure Architect Name Role Phone Lyndon Olsen MD Primary Care Provider Keya Elmo Meehan Unavailable [phone] Reason For Referral No Information Medications Medication SIG (Take, Route, Frequency, Duration) Notes Start Date End Date Status Glucosamine Chond Complex/MSM - 1 tablet Orally once a day Active Niacin 500 MG 1 tablet with food Orally Once a day Active Low-Dose Aspirin 81 mg 1 tablet orally o nce a day Active Atorvastatin Calcium 80 MG 1 tablet Oral ly Once a day Active Carvedilol 25 MG Orally Act hector hydroCHLOROthiazide 12.5 MG 1 capsule in the morning Orally Once a day Active Losartan Potassium 100 MG 1 tablet Orall y Once a day Active amLODIPine Besylate 10 MG 1 tablet Orall y Once a day Active Social History Tobacco Use: Social History Observation Description Date Details (start date - stop date) Former Smoker NA - NA Tobacco Use/Smoking Question Answer Notes Patient is a former smoker How long has it been since you last smoked? > 10 years Alcohol Screen Question Answer Notes Did you have a drink contain ing alcohol in the past year? Yes How often did you have a dri nk containing alcohol in the past year? 4 or more times a week (4 points) How many drinks did you have on a typical day when you were drinking in the past year? 1 or 2 drinks (0 point) How often did you have 6 or more drinks on one occasion in the past year? Never (0 point) Points 4 Interpretation Positive Section Notes: Nonsmoker > 10 yrs; a couple of drinks per day Problems Problem Type SNOMED Code ICD Code Onset Dates Problem Status W/U Status Risk Notes Problem 278435117 Encounter for screening for malignant neoplasm of colon (Z12.11) Active confirmed Problem 034696087 Preprocedural examination (Z01.818) Active confirmed Problem 743826113 Long-term use of aspirin therapy (Z79.82) Active confirmed Plan Of Treatment Future Test Test Name Order Date COLONOSCOPY 06/02/2017 Insurance Providers Payer Name Payer Address Payer Phone Subscriber Number Group Number Insured Name Patient Relationship to Insured Coverage Start Date Coverage End Date [facility] [employer] [address] [place] [address] [id number] EDER JOSÉ Self - patient is the insured Medical (General) History Medical History History ICD Code Denies ID,DM,CVA,Lung disease,renal dise ase CAD--surgery as below GERD--neg. EGD in 1995 Screening colonoscopy in 08/17 008--neg. except for hyperplastic polyps and internal hemorrhoids HTN Hyperlipidemia Surgical History Surgery Date(Month/Year) 4V-CABG 2004 Achilles tendon on the right Tonsillectomy Bilateral hip replacements 2012 and 2015 Umbilical Hernia
--- OUTSIDE RECORDS SUMMARY | 2024-08-25 10:44 | XMS_ITS | Clinical Summary ---
Author Organization [facility] Address [address] [place] [address] Care Team Providers Care Pharmacy Technician Inpatient Name Role Phone Lyndon Olsen MD Primary Care Provider [phone] Allergies No known active allergies Medications Medication [...] on file Medical Devices Implanted Type Area Convertible Power Shovel Operator Device Identifier Shelf Expiration Date Model / Serial / Lot Shell Trident Psl Mdm F 56mm 57.8mm Cluster Rim Hu X3 - [id number] - [id number] Implanted:Qty: 1 on 03/07/2014 by Vivek Vargas MD at [facility] [place] and Med Right: Hip [employer] 01/15/2019 [id number] / / [id number] Screw Trident Secur-Fit 40mm 6.5mm Titanium Bone Cancellous - [id number] - [id number] Implanted:Qty: 1 on 03/07/2014 by Vivek Vargas MD at [facility] [place] [facility] and Med Right: Hip [employer] 02/15/[id number] / / [id number] Screw Trident Secur-Fit 40mm 6.5mm Titanium Bone Cancellous - [id number] - [id number] Implanted:Qty: 1 on 03/07/2014 by Vivek Vargas MD at [facility] [place] [facility] and Med Right: Hip [employer] 06/15/[id number] / / [id number] Head +2.5mm 32mm C Taper High Performance Offset Biolox - [id number] - [id number] Implanted:Qty: 1 on 03/07/2014 by Vivek Vargas MD at [facility] and [facility] Right: Hip [employer] 07/16/2018 [id number] / / [id number] Stem Secur-Fit Plus 9 150mm 35mm 13mm Primary Hu Femoral Hip - [id number] - [id number] Implanted:Qty: 1 on 03/07/2014 by Vivek Vargas MD at [facility] and [facility] Right: Hip [employer] 01/15/2019 [id number] / / [id number] Insert Trident 0d F 32mm X3 Acetabular Hip - [id number] - [id number] Implanted:Qty: 1 on 03/07/2014 by Vivek Vargas MD at [facility] and [facility] Right: Hip [employer] 05/16/2018 [id number] / / [id number] Advance Directives For more information, please contact: [phone] Latest Code Status on File Code Status Date Activated Date Inactivated Comments Full Code 03/07/2014 1:43 PM 03/08/2014 11:19 PM This code status was ascertained in the following way: per living will or healthcare instructions. Code Status History Code Status Date Activated Date Inactivated Comments Full Code 03/07/2014 5:35 AM 03/07/2014 1:43 PM Care Teams Pharmacy Technician Inpatient Relationship Specialty Start Date End Date Lyndon Olsen MD [address] [place] [address] [place] [id number] PCP - General [employer] Tube Bender 02/28/14
--- NOTE | 2024-08-25 10:48 | MHC.OFFVIS ---
Intake Visit Reasons: elevated PSA Intake Note: New Patient is present for elevated PSA Urology Rx:none Blood Thinners:asprin PSA 07/28/24 : 7.49 PSA ULTRA 08/12/24: 4.30 Supervisor Of Officials Required: No Accompanied by: Self / Same As Patient Allergies No Known Allergies Allergy (Mild, Verified 08/25/24 10:50) NOT APPLICABLE HPI Comments Details: The patient is a 69-year-old male presenting with elevated PSA levels and urinary symptoms. PSA levels have fluctuated, recently spiking to 7.5, then retesting at 4.3. Possible causes include recent exercise or sexual activity. The patient has benign prostatic hyperplasia with urinary frequency and nocturia. Flomax was prescribed but not taken due to dizziness concerns. History of quadruple bypass surgery 20 years ago. SHERITA 2+ Urinary Symptoms Review - Difficulty urinating and increased frequency - Nocturia, waking up multiple times at night - Previously prescribed Flomax but not taken due to dizziness concerns Results - PSA level initially 7.5, retested at 4.3 [facility] Surgical History History of colonoscopy (~06/11/17) Family History Mother No problems noted. Father No problems noted. Social History Housing: House Patient Tobacco Use Status: Former Tobacco user e-Cigarette/Vaping Use: Former Use Current occupational status: retired Cognitive needs: No Hearing needs: No Vision needs: Yes (rx glasses) Review of Systems Const Denies chills and Denies fever(s) Card Reports no additional complaints and Denies syncope Resp Denies cough GI Denies abdominal pain and Denies heartburn Reports as per HPI and Denies change in libido Neuro Denies syncope Psych Denies change in libido Endo Denies change in libido Physical Exam Const General: cooperative, healthy appearing, comfortable and no acute distress Orientation/consciousness: patient oriented x3 HEENT Face and sinus: Yes normal facial exam Mouth: moist mucous membranes Neck Neck: Yes normal visual inspection, Yes full ROM and Yes trachea midline Chest Chest palpation & inspection: normal inspection of the chest Resp Effort & Inspection: normal respiratory effort, able to speak in complete sentences and no respiratory distress GI Inspection: Yes normal to inspection Rectal Exam - Male: Yes normal sphincter tone and Yes prostate normal Male General Exam: Yes normal external exam Penis: normal penis and circumcised Meatus: meatus normal Scrotum: scrotum normal Testes: Testes normal Back/Spine/Pelvis Cervical Spine: normal cervical lordosis Thoracic/Lumbar Spine: thoracic and lumbar spine normal to inspection Skin General skin exam: no rashes or lesions noted Neuro General: patient oriented x3, gait normal, tone normal and moves all extremities Extrem General: Yes normal to inspection and Yes capillary refill normal Assessment & Plan Assessment & Plan (1) Bladder outlet obstruction: Code(s): N32.0 - Bladder-neck obstruction Category: Medical (2) Weak urinary stream: Code(s): R39.12 - Poor urinary stream Category: Medical (3) Incomplete emptying of bladder due to benign prostatic hyperplasia: Code(s): N40.1 - Benign prostatic hyperplasia with lower urinary tract symptoms; R33.9 - Retention of urine, unspecified Category: Medical Plan Plan Patient informed verbally consented to the use of an ambient scribe 1. Elevated Prostate-Specific Antigen (Psa) - Monitor PSA levels with repeat testing in six months - Consider factors affecting PSA levels such as exercise and sexual activity 2. Benign Prostatic Hyperplasia (Bph) - Try Flomax to alleviate urinary symptoms - Follow-up in six months to assess symptom improvement and PSA levels Discussion Notes I discussed with the patient the variability in PSA levels and the potential impact of recent activities such as exercise and sexual activity. We agreed to monitor the PSA levels with a repeat test in six months. I recommended trying Flomax to manage urinary symptoms, explaining the potential side effects and the expected improvement in symptoms. We also discussed the slow-growing nature of prostate issues and the importance of follow-up care. Patient Instructions - Try Flomax as prescribed to manage urinary symptoms. - Monitor any side effects and report them if they occur. - Return for follow-up in six months for repeat PSA testing and symptom evaluation. Medications: New tamsulosin (Flomax) 0.4 mg PO BEDTIME 30 tabs 1RF 30 days N40.1 - Benign prostatic hyperplasia with lower urinary tract symptoms, R33.9 - Retention of urine, unspecified Patient Instructions: This note is constructed using voice recognition software. While every effort has been made to ensure accuracy rubber goods supervisor errors may have been included. Imaging studies, laboratory and physical exam results were discussed and reviewed in detail. No major barriers to patient understanding were identified. An opportunity to ask questions regarding the treatment plan was provided. All questions were answered. The patient expressed understanding and agreement with the above treatment plan. The patient is aware they should contact our office by phone for worsening of their current condition or the appearance of new urologic symptoms. Compliance is encouraged with any medications and followup testing that is ordered. It is a privilege to participate in the urologic care of your patient. If you have any questions or concerns regarding treatment for the above conditions, or other urologic issues, please do not hesitate to contact me. The office telephone contact is [phone]. Sincerely, Dr Pieter Almaguer MD, [facility] - Urology Compassionate Specialist Care for the Genitourinary System Coding Level of Care Code New Pt Level 4 (07310) Diagnoses Bladder outlet obstruction N32.0 Weak urinary stream R39.12 Incomplete emptying of bladder due to benign prostatic hyperplasia N40.1; R33.9
== END 2024-08-25 11:29 | disposition home or self-care (01) ==
LOC: HO.HUSH 10:05
PROVIDERS: PCP Internal Medicine; Visit Provider Urology
DX: N32.0 Bladder-neck obstruction (principal); N40.1 Benign prostatic hyperplasia with lower urinary tract symptoms; R39.12 Poor urinary stream; R33.9 Retention of urine, unspecified; Z13.9 Encounter for screening, unspecified
CPT/HCPCS: 99204

== ENCOUNTER → 2024-08-25 10:05 | Outpatient (BNVA) | payer MEDICARE, SELFPAY | PROVIDERS: PCP Internal Medicine; Visit Provider Urology | DX: N40.1 Benign prostatic hyperplasia with lower urinary tract symptoms (principal); N32.0 Bladder-neck obstruction; R39.12 Poor urinary stream; R33.9 Retention of urine, unspecified | CPT/HCPCS: 81003; 99202 ==

== ENCOUNTER 2025-01-27 09:12 | Outpatient (AMB) | payer MEDICARE, SELFPAY ==
[2025-01-27 09:22] VITALS: BP 136/82; PULSE 65; RESP 14; O2SAT 98; BMI 34.3
--- NOTE | 2025-01-27 09:22 | MHC.PC.OV ---
Vital Signs 01/27/25 09:22 Height 5 ft 9 in Weight 232 lb 2 oz BMI 34.3 BP 136/82 Blood Pressure Location Rt brachial Position Sitting Respiration 14 Pulse 65 Pulse Source Pulse Oximeter Pulse Oximetry (%) 98 Oxygen Delivery Method Room Air Intake Visit Reasons: 6 Month F/U Intake Note: Follow up, transfer of care from [place]. Crayon Painter Required: No Allergies No Known Allergies Allergy (Mild, Verified 01/27/25 09:23) NOT APPLICABLE Tobacco use date assessed: 01/27/25 Fall risk assessment: 1 Fall in past year Last assessed Fall Risk: 01/27/25 Dental Screening Dental Screen Date: 07/28/24 HPI HPI Comments History of Present Illness Details The patient is a 69 year old male with a past medical history of diabetes, CAD s/p CABG 20 years ago, hyperlipidemia, hypertension, OA s/p b/l hip replacements presenting for follow up CV: On entresto, coreg, toprol, zetia, ranolozine, NTG, ASA. BP is controlled. Follows with Dr Coleman. Irregular heart beat. DM: On jardiance 10mg daily. Last A1C 5.2% from 5.3%. Colonoscopy 2018-Dr Cruz Got COVID vaccine, flu vaccine, RSV vaccine ROS CONSTITUTIONAL: Denies weight loss, fever and chills. HEENT: Denies changes in vision and hearing. RESPIRATORY: Denies SOB and cough. CV: Denies palpitations and CP GI: Denies abdominal pain, nausea, vomiting and diarrhea. : Denies dysuria and urinary frequency. MSK: Denies new myalgia and joint pain. SKIN: Denies rash and pruritus. NEUROLOGICAL: Denies headache PSYCHIATRIC: Denies recent changes in mood. PHYSICAL EXAM: GENERAL: Alert and oriented x 3. NAD EYES: EOMI. Anicteric. HENT: Moist mucous membranes. No scleral icterus. No cervical lymphadenopathy. LUNGS: Clear to auscultation bilaterally. CARDIOVASCULAR: Regular rate and rhythm. No murmur. No JVD. ABDOMEN: Soft, non-tender +bs EXTREMITIES: No edema. Non-tender. SKIN: No rashes or lesions. Warm. NEUROLOGIC: No focal neurological deficits. CN II-XII grossly intact PSYCHIATRIC: Cooperative. Appropriate mood and affect [facility] Medical History (Updated 01/27/25 @ 11:08 by Yusra Bell MD) Diabetes Surgical History History of colonoscopy (~06/11/17) Family History Mother No problems noted. Father No problems noted. Social History (Updated 01/27/25 @ 09:31 by Jacquie Salcedo CMA) Housing: House Alcohol intake: current Patient Tobacco Use Status: Former Tobacco user e-Cigarette/Vaping Use: Former Use Current occupational status: retired Cognitive needs: No Hearing needs: No Vision needs: Yes (rx glasses) Questionnaire PHQ-9 Over the last 2 weeks, how often have you been bothered by any of the following problems? 1. Little interest or pleasure in doing things: not at all 2. Feeling down, depressed, or hopeless: not at all 3. Trouble falling or staying asleep, or sleeping too much: not at all 4. Feeling tired or having little energy: not at all 5. Poor appetite or overeating: not at all 6. Feeling bad about yourself - or that you are a failure or have let yourself or your family down: not at all 7. Trouble concentrating on things, such as reading the newspaper or watching television: not at all 8. Moving or speaking so slowly that other people could have noticed. Or the opposite - being so fidgety or restless that you have been moving around a lot more than usual: not at all 9. Thoughts that you would be better off or of hurting yourself in some way: not at all Total score: 0 Depression Screening Interpretation: Negative Depression Screening Done: Yes 11430 - PHQ-9 Billing: Yes Source: Developed by Drs. Elmo Marroquin, Darshana Austin, Mumtaz Ca and colleagues, with an educational saurav from [employer]. Thrive Questionnaire Date Thrive assessed: 01/24/25 I am a: Patient What is your living situation today?: I have a steady place to live Within the past 12 months, did the food you bought not last and you didn't have the money to get more?: I choose not to answer this question Within the past 12 months, did you worry whether your food would run out before you got money to buy more?: I choose not to answer this question Do you have trouble paying for medicines?: I choose not to answer this question Do you have trouble getting transportation to medical appointments?: I choose not to answer this question Do you have trouble paying your heating and electricity bill?: I choose not to answer this question Do you have trouble taking care of your child, family member or friend?: I choose not to answer this question Do you have trouble with day-to-day activities such as bathing, preparing meals, shopping, managing finances, etc.?: I choose not to answer this question Are you currently unemployed and looking for a job?: I choose not to answer this question Are you interested in more education?: I choose not to answer this question Currently or been in a relationship where the following occur: I choose not to answer THRIVE Score: 0 AUDIT C Alcohol Use Questionnaire (AUDIT-C) 1. How often do you have a drink containing alcohol?: 4 or more times a week Total Score: 4 GRACIELA-7 AMB Questionnaire GRACIELA-7 Date GRACIELA - 7 assessed: 07/28/24 Source: Developed by Drs. Elmo Marroquin, Darshana Austin, Mumtaz Ca and colleagues, with an educational saurav from [employer]. Physical exam (Primary Care) Vital Signs: Last Vital Signs Pulse 65 01/27/25 09:22 Resp 14 01/27/25 09:22 BP 136/82 01/27/25 09:22 Pulse Ox 98 01/27/25 09:22 Oxygen Delivery Method Room Air 01/27/25 09:22 BMI result Body Mass Index 34.3 Tobacco/Smoking Status: Tobacco use Status Tobacco use date assessed 01/27/25 01/27/25 09:26 Patient Tobacco Use Status Former Tobacco user 01/27/25 09:31 e-Cigarette/Vaping Use Former Use 01/27/25 09:31 PHQ-9: PHQ-9 Score PHQ-9: Total score 0 01/27/25 09:33 Depression Screening Interpretation: Negative Thrive Assessment: Date of Thrive Assessment Date Thrive assessed 01/24/25 01/27/25 09:26 Currently or been in a relationship where the following occur: I choose not to answer Results AMB Hemoglobin A1c AMB Hemoglobin A1c 5.2 % Last Edit by Jacquie Salcedo CMA on 01/27/25 09:36 Results Reviewed Results Reviewed: Laboratory Last Values Hgb A1c (Clinic) 5.2 % (4.0-6.0) 01/27/25 09:32 Coding Level of Care Code Est Pt Level 4 (83433) Diagnoses Prediabetes R73.03 Coronary artery disease involving coronary bypass graft of andreafski heart, unspecified whether angina present I25.810 Coronary Disease-Associated Artery/Lesion type: bypass graft Pala vs. transplanted heart: andreafski heart Associated angina: unspecified whether angina present Additional Codes PHQ-9 - 96198 - PHQ-9 Billing: Yes ([id number]) Assessment & Plan Assessment & Plan (1) Prediabetes: Code(s): R73.03 - Prediabetes Category: Medical (2) CAD (coronary artery disease): Code(s): I25.10 - Atherosclerotic heart disease of andreafski coronary artery without angina pectoris Category: Medical Qualifiers: Coronary Disease-Associated Artery/Lesion type: bypass graft Pal[place] vs. transplanted heart: andreafski heart Associated angina: unspecified whether angina present Qualified Code(s): I25.810 - Atherosclerosis of coronary artery bypass graft(s) without angina pectoris Plan 69 year old male presenting for follow up Prediabetes/diabetes-controlled on jardiance CAD-continues cardiology follow up Orders: Orders AMB Hemoglobin A1c Today E11.59 - Type 2 diabetes mellitus with other circulatory complications Complete Blood Count Auto Diff 6 Months E11.59 - Type 2 diabetes mellitus with other circulatory complications, E78.5 - Hyperlipidemia, unspecified, I10 - Essential (primary) hypertension, I25.10 - Atherosclerotic heart disease of [place]reafski coronary artery without angina pectoris Comprehensive Met. Panel 6 Months E11.59 - Type 2 diabetes mellitus with other circulatory complications, E78.5 - Hyperlipidemia, unspecified, I10 - Essential (primary) hypertension, I25.10 - Atherosclerotic heart disease of [place]reafski coronary artery without angina pectoris Lipid Panel 6 Months E11.59 - Type 2 diabetes mellitus with other circulatory complications, E78.5 - Hyperlipidemia, unspecified, I10 - Essential (primary) hypertension, I25.10 - Atherosclerotic heart disease of [place]reafski coronary artery without angina pectoris Hemoglobin A1c 6 Months E11.59 - Type 2 diabetes mellitus with other circulatory complications, E78.5 - Hyperlipidemia, unspecified, I10 - Essential (primary) hypertension, I25.10 - Atherosclerotic heart disease of [place]reafski coronary artery without angina pectoris TSH reflex Free T4 6 Months E11.59 - Type 2 diabetes mellitus with other circulatory complications, E78.5 - Hyperlipidemia, unspecified, I10 - Essential (primary) hypertension, I25.10 - Atherosclerotic heart disease of [place]reafski coronary artery without angina pectoris
== END 2025-01-27 09:48 | disposition home or self-care (01) ==
LOC: HO.HMCFM 09:13
PROVIDERS: PCP Internal Medicine; Visit Provider Internal Medicine
DX: R73.03 Prediabetes (principal); I25.810 Atherosclerosis of coronary artery bypass graft(s) without angina pectoris; E11.59 Type 2 diabetes mellitus with other circulatory complications

== ENCOUNTER → 2025-01-27 09:12 | Outpatient (BNVA) | payer MEDICARE, SELFPAY | PROVIDERS: PCP Internal Medicine; Visit Provider Internal Medicine | DX: I25.810 Atherosclerosis of coronary artery bypass graft(s) without angina pectoris (principal); E11.59 Type 2 diabetes mellitus with other circulatory complications; E78.5 Hyperlipidemia, unspecified; I10 Essential (primary) hypertension; Z13.31 Encounter for screening for depression | CPT/HCPCS: 83036; 96127; 99212 ==

== ENCOUNTER 2025-02-11 10:43 | Outpatient (REF) | payer MEDICARE, SELFPAY ==
--- OUTSIDE RECORDS SUMMARY | 2022-09-19 11:01 | XMS_ITS | Encounter Summary ---
Author Organization [facility] Address [address] [facility] [address] [place] [phone] Phone Care Team Providers Care Vtc Technician Name Role Phone Lyndon Olsen MD Primary Care Provider Encounter Details Date Type Department Care Team ([facility] st Contact Info) Description 09/19/2022 12:01 PM EDT Hospital Encounter [facility] [address] [place] [id number] Meseret Obrien, PRISM MEASURER [address] [place] [address] [email or web address] History Tobacco Use Types Packs/Day Years Used Date Smoking Tobacco: Never Smokeless Tobacco: Never Education Answer Date Recorded Are you interested in more education? Not on ayana e 06/13/2022 Are you concerned about learning? Not on file 06/13/2022 No 06/13/2022 No 06/13/2022 Digital Access Answer Date Recorded No 07/12/2022 No 07/12/2022 Reliable internet access at home? Not on file 07/12/2022 Device with a working camera? Not on file Sex and Gender Information Value Date Recorded Sex Assigned at Not on file Legal Sex Male 9:55 PM EDT Gender Identity Not on file Sexual Orientation Not on file documented as of this encounter Plan of Treatment Not on file documented as of this encounter Procedures Procedure Name Priority Date/Time Associated Diagnosis Comments XR RIBS 3 OR MORE VIEWS WITH PA CHEST (RIGHT) Urgent/patient waiting 09/19/2022 12:10 PM EDT Rib pain on right side documented in this encounter Results * XR RIBS 3 OR MORE VIEWS WITH PA CHEST (RIGHT) (09/19/2022 12:10 PM EDT) Anatomical Region Laterality Modality Chest Computed Radiogr aphy 09/19/2022 12:3 2 PM EDT Impressions 09/19/2022 12:32 PM EDT 1. No displaced rib fracture. 2. Nonspecific subpleural opacity along the peripheral aspect of the right lower lobe, incompletely evaluated by radiography. CT can be obtained for further characterization, if clinically indicated. Narrative 09/19/2022 12:32 PM EDT XR RIBS 3 OR MORE VIEWS WITH PA CHEST (RIGHT) COMPARISON: None FINDINGS: No displaced rib fracture. PA evaluation of the chest demonstrates no focal consolidation, pleural effusion, pulmonary edema, or pneumothorax. Postoperative changes status post median sternotomy and CABG. Aortic knob atherosclerosis. Small subpleural opacity along the periphery of the right lower lobe. Procedure Note Palmer Pruitt, DO - 09/19/2022 XR RIBS 3 OR MORE VIEWS WITH PA CHEST (RIGHT) COMPARISON: None FINDINGS: No displaced rib fracture. PA evaluation of the chest demonstrates no focal consolidation, pleuraleffusion, pulmonary edema, or pneumothorax. Postoperative changes statuspost median sternotomy and CABG. Aortic knob atherosclerosis. Smallsubpleural opacity along the periphery of the right lower lobe. IMPRESSION: 1. No displaced rib fracture. 2. Nonspecific subpleural opacity along the peripheral aspect of theright lower lobe, incompletely evaluated by radiography. CT can beobtained for further characterization, if clinically indicated. Meseret Obrien PRISM MEASURER IMG XR CHEST Final Resul t documented in this encounter Visit Diagnoses Not on filedocumented in this encounter Care Teams Vtc Technician Relationship Specialty Start Date End Date Lyndon Olsen MD [address] [place] [address] Dr Logan, JUSTIN [address] PCP - General Internal Medicine 03/03/18 10/09/24 documented as of this encounter Additional Source Comments The information contained in this document represents components of the legal health record. It is not the complete legal health record.[facility]
--- OUTSIDE RECORDS SUMMARY | 2025-02-11 10:47 | XMS_ITS | Clinical Summary ---
Author Organization [facility] Address [address] [place] [address] Phone Care Team Providers Care Director Of Food And Nutrition Services Name Role Phone Yusra Begum MD Primary Care Provider Allergies No known active allergies Medications ENTRESTO 97-103 mg per tablet 09/13/2022 Activ e ranolazine (RANEXA) 500 MG 12 hr tablet 09/13/2022 Active nitroglycerin (NITROSTAT) 0.4 MG SL tablet DISSOLVE 1 TABLET UNDER TONGUE EVERY 5 MINS IF NEEDED FOR CHEST PAIN 08/27/2022 Active niacin (NIASPAN) 500 MG CR tablet Take 500 mg by mouth. Active losartan (COZAAR) 50 MG tablet Take 100 mg by mouth. Active hydroCHLOROthia zide (MICROZIDE) 12.5 mg capsule Take 12.5 mg by mouth. Active ezetimibe (ZETIA) 10 mg tablet 09/13/2022 Active carvedilol (COREG) 25 MG tablet 09/13/2022 Active atorvastatin (LIPITOR) 80 MG tablet 09/13/2022 Active amLODIPine (NORVASC) 10 MG tablet Take 10 mg by mouth. Active metoprolol tartrate (LOPRESSOR) 100 MG tablet Take 100 mg by mouth 2 (two) times a day. Active empagliflozin (JARDIANCE) 10 mg tablet Take 10 mg by mouth daily. 1/2 tablet QD Active Active Problems No known active problems Immunizations Immunization Administration Dates Next Due Zoster recombinant 08/26/2018,06/16/2018 Social History Tobacco Use Types Packs/Day Years [...] Sign Reading Time Taken Comments Blood Pressure 122/82 10/10/2024 2:31 PM EDT Pulse 74 10/10/2024 2:31 PM EDT Temperature 36.8 C (98.2 F) 10/10/2024 2:31 PM EDT Respiratory Rate 17 10/10/2024 2:31 PM EDT Oxygen Saturation 97% 10/10/2024 2:31 PM EDT Inhaled Oxygen Concentration - - Weight - - Height - - Body Mass Index - - Plan of Treatment Health Maintenance Due Date Last Done Comments Adult Td,Tdap Booster 1955 CREATININE LEVEL 1955 LIPID PANEL 1955 POTASSIUM LEVEL 1955 DEPRESSION SCREENING 1967 HEPATITIS C SCREENING 1973 COLOGUARD 2000 COLONOSCOPY 2000 COLORECTAL CANCER SCREENING 2000 FIT TEST 2000 FOBT 2000 SIGMOIDOSCOPY 2000 VIRTUAL COLONOSCOPY 2000 PNEUMOCOCCAL VACCINES (50+ years) (1 of 1 - PCV) 2005 RSV VACCINE (1 - Risk 50-74 years 1-dose series) 2005 INFLUENZA VACCINE (#1) 2024 COVID-19 VACCINE (2024- season) 2024 12/31/2023, 01/03/2023, 01/07/2021, Additional history exists ZOSTER VACCINES Completed 08/26/2018, 06/16/2018 SMOKING STATUS SCREENING (Once After 26 Yrs) Completed 10/10/2024 HEPATITIS A VACCINES Aged Out No long er eligible based on patient's age to complete this topic HIB VACCINES Aged Out No longer eligi ble based on patient's age to complete this topic MENINGOCOCCAL VACCINES (ACWY) Aged Out No longer eligible based on patient's age to complete this topic MENINGOCOCCAL VACCINES (B) Aged Out N o longer eligible based on patient's age to complete this topic Medical Devices Not on file Insurance MEDICARE PART A & B [facility] MEDEX SUPPLEMENT MEDICARE PART A & B [employer] MEDEX SUPPLEMENT MEDICARE PART A & B [employer] MEDEX SUPPLEMENT MEDICARE PART A & B [employer] MEDEX SUPPLEMENT MEDICARE PART A & B [employer] MEDEX SUPPLEMENT MEDICARE PART A & B Member Subscriber Plan / Payer ( fective 2021-Present) Name:Palmer Sales Member ID:[id number] Relation to Subscriber:Self Name:Palmer Sales Subscriber ID:[id number] Payer ID:[id number] Group ID:Not on file Type:Medicare Address: [facility] [facility] [address] [facility] [address] [employer] SUPPLEMENT Care Teams Director Of Food And Nutrition Services Relationship Specialty Start Date End Date Yusra Begum MD PCP - General Internal Medicine 10/10/24 Additional Source Comments The information contained in this document represents components of the legal health record. It is not the complete legal health record.[facility]
--- OUTSIDE RECORDS SUMMARY | 2025-02-11 10:47 | XMS_ITS | Clinical Summary ---
Author Organization [employer] [facility] Prior to 07/16/[address] [place] [address] Care Team Providers Care Unit Control Worker Name Role Phone Lyndon Olsen MD Primary Care Provider Allergies No known active allergies Medications Medication [...] on file Medical Devices Implanted Type Area Commutator Operator Device Identifier Shelf Expiration Date Model / Serial / Lot Shell Trident Psl Mdm F 56mm 57.8mm Cluster Rim Hu X3 - [id number] - [id number] Implanted:Qty: 1 on 03/07/2014 by Vivek Vargas MD at [facility] [place] and Med Right: Hip [employer] 01/15/2019 [id number] / / [id number] Screw Trident Secur-Fit 40mm 6.5mm Titanium Bone Cancellous - [id number] - [id number] Implanted:Qty: 1 on 03/07/2014 by Vivek Vargas MD at [facility] [place] and Med Right: Hip [employer] 02/15/[id number]- 1 / / [id number] Screw Trident Secur-Fit 40mm 6.5mm Titanium Bone Cancellous - [id number] - [id number] Implanted:Qty: 1 on 03/07/2014 by Vivek Vargas MD at [facility] [place] and Med Right: Hip [employer] 06/15/[id number]- 1 / / [id number] Head +2.5mm 32mm C Taper High Performance Offset [employer] - [id number] - [id number] Implanted:Qty: 1 on 03/07/2014 by Vivek Vargas MD at [facility] [place] and [facility] Right: Hip [employer] 07/16/2018 [id number] / / [id number] Stem Secur-Fit Plus 9 150mm 35mm 13mm Primary Hu Femoral Hip - [id number] - [id number] Implanted:Qty: 1 on 03/07/2014 by Vivek Vargas MD at [facility] [place] and Med Right: Hip [employer] 01/15/2019 [id number] / / [id number] Insert Trident 0d F 32mm X3 Acetabular Hip - [id number] - [id number] Implanted:Qty: 1 on 03/07/2014 by Vivek Vargas MD at [facility] [place] and [facility] Right: Hip [employer] 05/16/2018 [id number] / / [id number] Advance Directives For more information, please contact: [phone] Latest Code Status on File Code Status Date Activated Date Inactivated Comments Full Code 03/07/2014 1:43 PM 03/08/2014 11:19 PM This code status was ascertained in the following way: per living will or healthcare instructions. Code Status History Code Status Date Activated Date Inactivated Comments Full Code 03/07/2014 5:35 AM 03/07/2014 1:43 PM Care Teams Unit Control Worker Relationship Specialty Start Date End Date Lyndon Olsen MD [address] [place] [address] [place] [id number] PCP - General Blow Moulding Machine Operator 02/28/14
--- OUTSIDE RECORDS SUMMARY | 2025-02-11 10:47 | XMS_ITS | Patient Health Record ---
Author Organization [facility] Address [address] [place] [id number] Care Team Providers Care Contact Center Specialist Name Role Phone Pretty (RETIRED) Lyndon BREAUX Primary Care Provide r Elmo Rodrigues Unavailable [phone] Reason For Referral No Information Medications Medication SIG (Take, Route, Frequency, Duration) Notes Start Date End Date Status Glucosamine Chond Complex/MS M - Tablet 1 tablet Orally once a day Active Niacin 500 MG Tablet 1 tablet with food Orally Once a day Active Low-Dose Aspirin 81 mg tablet 1 tablet o rally once a day Active Atorvastatin Calcium 80 MG Tablet 1 tablet Orally Once a day Active Carvedilol 25 MG Tablet Orally Active hydroCHLOROthiazide 12.5 MG Capsule 1 capsule in the morning Orally Once a day Active Losartan Potassium 100 MG Tablet 1 tablet Orally Once a day Active amLODIPine Besylate 10 MG Tablet 1 tablet Orally Once a day Active Social History Tobacco Use: Social History Observation Description Date Details (start date - stop date) Former Smoker NA - NA Social History Drugs/Alcohol: Social Info Question Answer Notes Alcohol Screen Did you have a drink containing alcohol in the past year? Yes How often did you have a drink containing alcohol in the past year? 4 or more times a week (4 points) How many drinks did you have on a typical day when you were drinking in the past year? 1 or 2 drinks (0 point) How often did you have 6 or more drinks on one occasion in the past year? Never (0 point) Points 4 Interpretation Positive Tobacco Use: Social Info Question Answer Notes Tobacco Use/Smoking Patient is a former smoker How long has it been since you last smoked? > 10 years Additional Details Category Social Info Options Details Miscellaneous: Marital status: Occupation: Retired Section Notes: Nonsmoker > 10 yrs; a couple of drinks per day Problems Problem Type SNOMED Code ICD Code Onset Dates Problem Status W/U Status Risk Notes Problem Screening for malignant neoplasm of colon (903036711) Encounter for screening for malignant neoplasm of colon (Z12.11) Active confirmed Problem Preprocedural examination (775665534587835) Preprocedural examination (Z01.818) Active confirmed Problem Long-term current use of antiplatelet drug (452774132030889) Long-term use of aspirin therapy (Z79.82) Active confirmed Plan Of Treatment Future Test Test Name Order Date COLONOSCOPY 06/02/2017 Insurance Providers Payer Name Payer Address Payer Phone Subscriber Number Group Number Insured Name Patient Relationship to Insured Coverage Start Date Coverage End Date [facility] [employer] PROF[employer]AL CLAIMS [address] [place] [address] [id number] EDER JOSÉ Self - patient is the insured Medical (General) History Medical History History ICD Code Denies [place],DM,CVA,Lung disease,renal dise ase CAD--surgery as below GERD--neg. EGD in 1995 Screening colonoscopy in 08/17 008--neg. except for hyperplastic polyps and internal hemorrhoids HTN Hyperlipidemia Surgical History Surgery Date(Month/Year) 4V-CABG 2004 Achilles tendon on the right Tonsillectomy Bilateral hip replacements 2012 and 2015 Umbilical Hernia
[2025-02-11 11:45] LABS: Prostate Specific Antigen 3.87 ng/mL (<0.05-4.0)
== END 2025-02-11 10:44 | disposition home or self-care (01) ==
LOC: HO.LAB 10:43
PROVIDERS: PCP Internal Medicine; Visit Provider Urology
DX: N32.0 Bladder-neck obstruction (principal); R39.12 Poor urinary stream; N40.1 Benign prostatic hyperplasia with lower urinary tract symptoms; R33.8 Other retention of urine; R97.20 Elevated prostate specific antigen [PSA]; Z12.5 Encounter for screening for malignant neoplasm of prostate
CPT/HCPCS: 36415; 84153